=== PATIENT | female | born 1980 | race Hispanic/Latino ===

== ENCOUNTER → 2023-12-31 09:12 | Outpatient (REF) | payer OTHER, SELFPAY ==
[2023-12-31 10:23] LABS: % Basophils 0.5 % (0-2); % Eosinophils 3.1 % (0-6); % Immature Granulocytes 0.4 % (0-0.5); % Lymphocytes 26.3 % (20.5-51.1); % Monocytes 4.3 % (1.7-9.3); % Neutrophils 65.4 % (42.2-75.2); Absolute Basophils 0.1 10^3/uL (0-0.2); Absolute Eosinophils 0.3 10^3/uL (0-0.7); Absolute Lymphocytes 2.5 10^3/uL (1.2-3.4); Absolute Monocytes 0.4 10^3/uL (0.1-0.6); Absolute Neutrophils 6.1 10^3/uL (1.4-6.5); Hematocrit 34.9 % (37.0-47.0); Hemoglobin 10.9 g/dL (12.0-16.0); Mean Corp Hgb Conc. 31.2 g/dL (33.0-37.0); Mean Corpuscular Hgb 21.9 pg (27.0-31.0); Mean Corpuscular Volume 70.1 fL (81.0-99.0); Mean Platelet Volume 9.3 fL (7.4-10.4); Nucleated Red Blood Cells % 0 %; Platelet Count 435 10^3/uL (130-400); Red Blood Cell Count 4.98 10^6/uL (4.20-5.40); Red Cell Dist. Width 17.8 % (11.5-14.5); White Blood Cell Count 9.4 10^3/uL (4.8-10.8)
[2023-12-31 11:14] LABS: Vitamin D, 25-OH*** 33.2 ng/mL (30-80)
[2023-12-31 11:26] LABS: ALT (SGPT) 12 U/L (0-35); AST (SGOT) 18 U/L (14-36); Albumin 4.1 g/dl (3.5-5.0); Alkaline Phosphatase 76 U/L (38-126); Blood Urea Nitrogen 20 mg/dl (7-17); Calcium 9.1 mg/dl (8.4-10.2); Carbon Dioxide 21 mmol/L (22-30); Chloride 102 mmol/L (98-107); Glucose 105 mg/dl (70-99); HDL Cholesterol 43 mg/dl; LDL Cholesterol, Calculated 71 mg/dl; Potassium 4.2 mmol/L (3.5-5.1); Sodium 135 mmol/L (135-145); Total Bilirubin 0.8 mg/dl (0.2-1.3); Total Cholesterol 157 mg/dl (50-199); Total Protein 7.2 g/dl (6.3-8.2); Triglyceride 217 mg/dl (10-149); Very Low Density Lipoprotein 43 mg/dl (0-30); eGFR > 60.00
[2023-12-31 13:55] LABS: Glycohemoglobin (HgbA1c) 7.8 % (4.0-5.6)
== END ==
LOC: CLINIC 09:12
PROVIDERS: ATTENDING PHYSICIAN Nurse Practitioner Acute Care
DX: E55.9 Vitamin D deficiency, unspecified (principal); E11.9 Type 2 diabetes mellitus without complications; E78.1 Pure hyperglyceridemia; D64.9 Anemia, unspecified
CPT/HCPCS: 36415; 80053; 80061; 82306; 83036; 85025

== ENCOUNTER → 2024-05-23 06:38 | Outpatient (REF) | payer OTHER, SELFPAY ==
[2024-05-23 08:16] LABS: ALT (SGPT) 13 U/L (0-35); AST (SGOT) 21 U/L (14-36); Albumin 4.5 g/dl (3.5-5.0); Alkaline Phosphatase 70 U/L (38-126); Blood Urea Nitrogen 20 mg/dl (7-17); Calcium 9.1 mg/dl (8.4-10.2); Carbon Dioxide 21 mmol/L (22-30); Chloride 104 mmol/L (98-107); Glucose 108 mg/dl (70-99); HDL Cholesterol 42 mg/dl; LDL Cholesterol, Calculated 101 mg/dl; Sodium 136 mmol/L (135-145); Total Bilirubin 0.6 mg/dl (0.2-1.3); Total Cholesterol 192 mg/dl (50-199); Total Protein 7.2 g/dl (6.3-8.2); Triglyceride 246 mg/dl (10-149); Very Low Density Lipoprotein 49 mg/dl (0-30); eGFR > 60.00
[2024-05-23 08:19] LABS: % Basophils 0.6 % (0-2); % Eosinophils 3.9 % (0-6); % Immature Granulocytes 0.6 % (0-0.5); % Lymphocytes 29.6 % (20.5-51.1); % Monocytes 5.7 % (1.7-9.3); % Neutrophils 59.6 % (42.2-75.2); Absolute Basophils 0.1 10^3/uL (0-0.2); Absolute Eosinophils 0.3 10^3/uL (0-0.7); Absolute Immature Granulocytes 0.1 10^3/uL (0-0.05); Absolute Lymphocytes 2.6 10^3/uL (1.2-3.4); Absolute Monocytes 0.5 10^3/uL (0.1-0.6); Absolute Neutrophils 5.2 10^3/uL (1.4-6.5); Hematocrit 35.4 % (37.0-47.0); Mean Corp Hgb Conc. 31.1 g/dL (33.0-37.0); Mean Corpuscular Hgb 21.8 pg (27.0-31.0); Mean Corpuscular Volume 70.1 fL (81.0-99.0); Mean Platelet Volume 9.5 fL (7.4-10.4); Nucleated Red Blood Cells % 0 %; Platelet Count 431 10^3/uL (130-400); Red Blood Cell Count 5.05 10^6/uL (4.20-5.40); Red Cell Dist. Width 19.6 % (11.5-14.5); White Blood Cell Count 8.8 10^3/uL (4.8-10.8)
[2024-05-23 08:32] LABS: Vitamin D, 25-OH*** 21.1 ng/mL (30-80)
== END ==
LOC: CLINIC 06:38
PROVIDERS: ATTENDING PHYSICIAN Nurse Practitioner Acute Care
DX: D64.9 Anemia, unspecified (principal); E11.65 Type 2 diabetes mellitus with hyperglycemia; E55.9 Vitamin D deficiency, unspecified; E78.1 Pure hyperglyceridemia; I10 Essential (primary) hypertension
CPT/HCPCS: 36415; 80053; 80061; 82306; 83036; 85025

== ENCOUNTER → 2025-01-16 09:19 | Outpatient (REF) | payer OTHER, SELFPAY ==
[2025-01-16 09:46] LABS: % Basophils 0.5 % (0-2); % Eosinophils 4.1 % (0-6); % Immature Granulocytes 0.4 % (0-0.5); % Lymphocytes 25.4 % (20.5-51.1); % Monocytes 4.5 % (1.7-9.3); % Neutrophils 65.1 % (42.2-75.2); Absolute Eosinophils 0.3 10^3/uL (0-0.7); Absolute Monocytes 0.4 10^3/uL (0.1-0.6); Absolute Neutrophils 5.1 10^3/uL (1.4-6.5); Hematocrit 37.8 % (37.0-47.0); Mean Corp Hgb Conc. 31.7 g/dL (33.0-37.0); Mean Corpuscular Hgb 22.9 pg (27.0-31.0); Mean Corpuscular Volume 72.3 fL (81.0-99.0); Mean Platelet Volume 8.8 fL (7.4-10.4); Nucleated Red Blood Cells % 0 %; Platelet Count 370 10^3/uL (130-400); Red Blood Cell Count 5.23 10^6/uL (4.20-5.40); Red Cell Dist. Width 18.1 % (11.5-14.5); White Blood Cell Count 7.8 10^3/uL (4.8-10.8)
[2025-01-16 11:02] LABS: TSH Reflex To Free T4 2.83 uIU/ml (0.47-4.68)
[2025-01-16 11:16] LABS: Glycohemoglobin (HgbA1c) 9.5 % (4.0-5.6)
[2025-01-16 11:46] LABS: ALT (SGPT) 18 U/L (0-35); AST (SGOT) 22 U/L (14-36); Albumin 4.6 g/dl (3.5-5.0); Alkaline Phosphatase 83 U/L (38-126); Blood Urea Nitrogen 20 mg/dl (7-17); Calcium 9.4 mg/dl (8.4-10.2); Carbon Dioxide 23 mmol/L (22-30); Chloride 102 mmol/L (98-107); Glucose 155 mg/dl (70-99); HDL Cholesterol 48 mg/dl; Potassium 4.5 mmol/L (3.5-5.1); Sodium 138 mmol/L (135-145); Total Bilirubin 0.9 mg/dl (0.2-1.3); Total Cholesterol 234 mg/dl (50-199); Total Protein 7.7 g/dl (6.3-8.2); eGFR > 60.00
[2025-01-16 11:53] LABS: Triglyceride > 400 mg/dl (10-149)
[2025-01-16 12:16] LABS: LDL Cholesterol, Direct 110 mg/dl
[2025-01-17 14:31] LABS: Vitamin D 1,25 Dihydroxy 36.5 pg/mL (19.9-79.3)
== END ==
LOC: CLINIC 09:19
PROVIDERS: ATTENDING PHYSICIAN Nurse Practitioner Family
DX: E11.9 Type 2 diabetes mellitus without complications (principal); E78.1 Pure hyperglyceridemia; E64.9 Sequelae of unspecified nutritional deficiency; E55.9 Vitamin D deficiency, unspecified
CPT/HCPCS: 36415; 80053; 80061; 82652; 83036; 83721; 84443; 85025